=== PATIENT | male | born 1970 | race Caucasian/White ===

== ENCOUNTER 2024-12-22 13:27 | Outpatient (OUT) | payer BC, SELFPAY ==
--- OUTSIDE RECORDS SUMMARY | 2024-12-22 13:30 | XMS_ITS | Encounter Summary ---
Author Organization [facility] Address [address] [place] [address] Care Team Providers Care Stringing Machine Operator Name Role Phone Anne Fernandez MD Unavailable [phone] Lavelle Menezes MD Primary Care Provider [phone] Encounter Details Date Type Department Care Team ([facility] st Contact Info) Description 12/09/2023 Orders Only [facility] [address] [facility] [address] [place] [address] Braulio Solis MD [address] [address] Social History Tobacco Use Types Packs/Day Years Used Date Smoking Tobacco: Every Day Cigarettes Smokeless Tobacco: Never PHQ-2 Answer Date Recorded Patient Health Questionnaire-2 Score 2 09/02/2023 Sex and Gender Information Value Date Recorded Sex Assigned at Not on file Legal Sex Male 8:01 PM EDT Gender Identity Not on file Sexual Orientation Not on file documented as of this encounter Plan of Treatment Not on file documented as of this encounter Procedures Procedure Name Priority Date/Time Associated Diagnosis Comments [place]INE DR[place] S[place] Routine 12/04/2023 9:23 AM EDT documented in this encounter Results * URINE DRUG SCREEN [place]/CONFIRM [place] (12/04/2023 9:23 AM EDT) Braulio Solis MD LAB BLOOD ORDERABLES Final Resul t documented in this encounter Visit Diagnoses Not on filedocumented in this encounter Care Teams Stringing Machine Operator Relationship Specialty Start Date End Date Anne Fernandez MD [address] [place] [address] PCP - External PCP Family Medicine 10/18/22 Lavelle Menezes MD [address] [place] [address] PCP - General Family Medicine 09/02/23 documented as of this encounter
--- OUTSIDE RECORDS SUMMARY | 2024-12-22 13:30 | XMS_ITS | Clinical Summary ---
Author Organization [facility] Address [address] [place] [address] Care Team Providers Care Day Worker Name Role Phone Anne Fernandez MD Unavailable [phone] Lavelle Menezes MD Primary Care Provider Allergies No known active allergies Medications omeprazole (PriLOSEC) [address] capsule 1 capsule 1 (one) time each day at the same time Active predniSONE (Deltasone) 10 MG tabletIndications: Primary osteoarthritis of right hip 6 PO daily x 3 days, 4 PO daily x 3 days, 2 PO daily x 3 days, 1 PO daily x 3 days 39 tablet 5 Active celecoxib (CeleBREX) 200 MG capsuleIndications :DDD (degenerative disc disease), lumbar Take 1 capsule (200 mg) by mouth in the morning and 1 capsule (200 mg) before bedtime. 60 capsule 2 5 Active celecoxib (CeleBREX) 200 MG capsuleIndications :DDD (degenerative disc disease), lumbar TAKE 1 CAPSULE BY MOUTH TWICE A DAY NEEDED 60 capsule 2 4 11/30/19 25 Discontin ued(Reord er) Active Problems Problem Noted Date Diagnosed Date Arthralgia 11/29/2024 Assessment & Plan (11/29/2024 10:03 AM EDT): Check labs DDD (degenerative disc disease), lumbar 09/02/19 24 Assessment & Plan (09/02/2023 10:03 AM EDT): Occasional stiffness and start celebrex. Increase activity and walk regularly. Dyslipidemia 09/02/2023 Gastroesophageal reflux disease without esophagi tis 09/02/2023 Primary osteoarthritis of right hip 09/02/2023 Assessment & Plan (11/29/2024 10:04 AM EDT): Continued pain and hard to function. Check labs for possible auto-immune disease. Treat with prednisone and use celebrex PRN. Refer to pain management for possible injections. Opioid abuse, in remission 09/02/2023 Tobacco user 09/02/2023 Annual physical exam 09/02/2023 Assessment & Plan (09/02/2023 10:03 AM EDT): Due for labs. Discussed proper diet and regular aerobic exercise. Need aerobic exercise 5-6 days a week for 30 minutes at a time. Smaller portions and limit total calories. Never had colon cancer screening and refer for colonoscopy. Tetanus every 10 years. Advised not to smoke. Discussed daily Aspirin therapy. Encounters Date Type Department Care Team Description 11/29/2024 9:15 AM EDT Office Visit [facility] [address] [place] [address] Lavelle Menezes MD Primary osteoarthritis of right hip (Primary Dx); Arthralgia, unspecified joint; DDD (degenerative disc disease), lumbar; Opioid abuse, in remission ([facility]) 11/29/2024 Bamboo flowsheet [facility] [address] [place] [address] Lavelle Menezes MD from Last 3 Months Social History Tobacco Use Types Packs/Day Years Used Date Smoking Tobacco: Every Day Cigarettes Smokeless Tobacco: Never Tobacco Cessation:Ready to Q uit: Not Asked; Counseling Given: Not Answered PHQ-2 Answer Date Recorded Patient Health Questionnaire-2 Score 2 09/02/2023 Sex and Gender Information Value Date Recorded Sex Assigned at Not on file Legal Sex Male 8:01 PM EDT Gender Identity Not on file Sexual Orientation Not on file Last Filed Vital Signs Vital Sign Reading Time Taken Comments Blood Pressure 124/66 11/29/2024 9:20 AM EDT Pulse 79 11/29/2024 9:20 AM EDT Temperature 36.3 C (97.3 F) 11/29/2024 9:20 AM EDT Respiratory Rate 20 11/29/2024 9:20 AM EDT Oxygen Saturation 98% 11/29/2024 9:20 AM EDT Inhaled Oxygen Concentration - - Weight 85.3 kg (188 lb) 11/29/2024 9:20 AM EDT Height 177.8 cm (5' 10 ) 11/29/2024 9:20 AM EDT Body Mass Index 26.98 11/29/2024 9:20 AM EDT Plan of Treatment Health Maintenance Due Date Last Done Comments CT Colonography 1972 Colonoscopy 1972 Colorectal Cancer Screening 1972 FIT-DNA 1972 FIT 1972 FOBT 1972 Sigmoidoscopy 1972 Influenza Vaccine (#1) 2025 02/08/2019 Insurance BS Care Teams Day Worker Relationship Specialty Start Date End Date Anne Fernandez MD [address] [place] [address] PCP - External PCP Family Medicine 10/18/22 Lavelle Menezes MD [address] [place] [address] PCP - General Family Medicine 09/02/23
--- OUTSIDE RECORDS SUMMARY | 2024-12-22 13:30 | XMS_ITS | Clinical Summary ---
Author Organization [facility] Address [address] [place] [address] Care Team Providers Care Cloth Cutter Name Role Phone Unavailable Primary Care Provider Unavailabl e Social History Tobacco Use Types Packs/Day Years Used Date Smoking Tobacco: Never Assessed [place] Safety & Environment Answer Date Rec orded Fear of Current or Ex-Partner Not on file Emotionally Abused Not on file 07/02/2023 Physically Abused Not on file 07/02/2023 Sexually Abused Not on file 07/02/2023 Physically or Sexually Abused Not on file Sex and Gender Information Value Date Recorded Sex Assigned at Not on file Legal Sex Male 12:35 AM EDT Gender Identity Not on file Sexual Orientation Not on file Plan of Treatment Not on file
--- OUTSIDE RECORDS SUMMARY | 2024-12-22 13:30 | XMS_ITS | Clinical Summary ---
Author Organization [facility] Address [address] [place] [address] Care Team Providers Care Carbider Name Role Phone Juan Otto MD Primary Care Provider [phone] Social History Tobacco Use Types Packs/Day Years Used Date Smoking Tobacco: Never Assessed Sex and Gender Information Value Date Recorded Sex Assigned at Not on file Legal Sex Male 7:35 AM EST Gender Identity Not on file Sexual Orientation Not on file Plan of Treatment Health Maintenance Due Date Last Done Comments Anxiety Screening 1990 Depression Screening 1990 HIV Screening 1990 Hepatitis C Screening 1990 DTaP,Tdap,Td Vaccine (1 - Tdap) 10/22/1991 Hepatitis B Vaccine (1 of 3 - 19+ 3-dose series) 10/21 Lipid Screening 10/22/2007 CT Colonography 2017 Cologuard (FIT-DNA) 2017 Colonoscopy 2017 Colorectal Cancer Screening 2017 Diabetes Screening 2017 Fecal Occult Blood 2017 Sigmoidoscopy 2017 Pneumococcal Vaccine: 50+ (1 of 1 - PCV) 2022 Shingrix Vaccine (1 of 2) 2022 Influenza Vaccine (#1) 2025 Care Teams Carbider Relationship Specialty Start Date End Date Juan Otto MD PCP - General 06/30/05
--- OUTSIDE RECORDS SUMMARY | 2024-12-22 13:30 | XMS_ITS | Patient Health Record ---
Author Organization [facility] [place] Address [address] [place] [address] Care Team Providers Care Haunted History Tour Guide Name Role Phone Rebecca Anne Primary Care Provider [phone] Reason For Referral No Information Medications Medication SIG (Take, Route, Frequency, Duration) Notes Start Date End Date Status PriLOSEC Active lipitor Active Social History Tobacco Use: Social History Observation Description Date Details (start date - stop date) Current Smoker NA - NA Tobacco Use/Smoking Question Answer Notes Patient is a current smoker How often do you smoke cigarettes? every day Problems Problem Type SNOMED Code ICD Code Onset Dates Problem Status W/U Status Risk Notes Problem [id number] Herniated lumbar intervertebral disc (M51.26) Active confirmed Plan Of Treatment No Information Insurance Providers Payer Name Payer Address Payer Phone Subscriber Number Group Number Insured Name Patient Relationship to Insured Coverage Start Date Coverage End Date [facility] [address] [place] [address] [id number] Ramo Molina Self - patient is the insured 8 Medical (General) History Medical History History ICD Code ARTHRITIS Surgical History Surgery Date(Month/Year)
--- NOTE | 2024-12-22 13:33 | PM.CN ---
Consult Note: HPI Data of Consult Patient: new to practice Consult date: 12/22/24 Requesting Physician: Carina Wick NP Primary Care Provider: Lavelle Menezes MD Consult Narrative Reason for consult: right hip pain Narrative: Ramo Molina a pleasant 54 year old male presents for evaluation of chronic right hip and low back pain, notes chronic low back pain > 5 years and right hip pain >1 year increasing over the last 3 months. Pt reports pain today 5/10 increasing to 10/10 with numbness tingling to right thigh, pain increased with standing, walking, pushing, pulling, walking around on concrete, stairs, bending. pt notes improvement with position changes and light activity. no imaging available for review. has not attempted PT/HEP. utilizing celebrex and THC with minimal relief. cc:: CC: Carina Wick NP Review of Systems ROS Musculoskeletal Reports: back pain and joint pain [facility] Medical History (Updated 12/22/24 @ 14:06 by Carina Wick NP) Chronic right hip pain ?M25.551 - Pain in right hip (ICD-10) ?G89.29 - Other chronic pain (ICD-10) Exam Constitutional Documenting provider has reviewed patient's vital signs: yes Common normals: no apparent distress, oriented x3, healthy appearing, alert and well nourished General appearance: cooperative HENMT Common normals: normocephalic, hearing grossly normal bilaterally and moist oral mucous membranes Head and scalp: normocephalic Eye Common normals: PERRL Pupil: PERRL Neck & C-Spine Common normals: full ROM General: normal visual inspection Chest Common normals: inspection of chest normal Respiratory Common normals: normal respiratory effort, no retractions and no use of accessory muscles Back & Pelvis Lumbar spine/lower back: pain with ROM, lumbar spinal tenderness Lumbar spinal tenderness location: L4 and L5 and straight leg raise positive right Sacroiliac joints: SI joint(s) abnormal Other: right sij positive chrystal(patricks), gaenslens, thigh thrust, compression test moderate pain of right hip with external rotation, none with internal rotation. strength 4/5 in RLE and 5/5 in LLE Neuro Common normals: oriented x3 Sensorium/orientation: alert Psych Common normals: mental status grossly normal, thought process normal, cooperative, affect normal, speech normal and activity/motor behavior normal Speech: normal speech Thought process: normal thought process Results Additional Findings Additional findings: If on a controlled substance or opioids, I have checked an [place] report on this patient and there are no aberrancies noted in the prescribing history.??If on a controlled substance or opioid a drug screen was completed and reviewed within the last year, and if there has not been a drug screen completed we ordered one today to monitor higher risk, state monitored pain medication use. As part of providing excellent, safe, comprehensive care, the following was completed at our patient's visit: 1. A medication reconciliation and review to ensure accurate knowledge of current/active medications, including asking our patients to inform us about any [id number] medications or herbal remedies/nutritional supplements/alternative remedies. 2. A review to specifically ensure our patients have had annual screening for screening for depression, screening for tobacco use, and screening for unhealthy alcohol use. For concerning screenings had a discussion with the patient, provided patient education, and recommended follow-up with primary care provider when appropriate. If patient noted with a risk of falling, they received education on strength, gait, and balance training to prevent future risk of falling. Portions of this note may have been carried over from the previous visit and updated as appropriate. Please note this office utilizes paper charting in addition to the electronic medical record. A list of current medications, vitals, and PMH is available there as the clinical staff outside of myself do not have access to [employer] charting during the clinic day operations. As part of providing quality comprehensive care the current medications, vitals, and PMH were reviewed in the paper chart. Assessment and Plan Assessment and Plan (1) Sacroiliitis: (2) Chronic right hip pain: (3) Lumbar stenosis with neurogenic claudication: Plan 54 year old male presents for evaluation of right hip pain, as discussed based on physical exam his right SIJ is most problematic. he likely has underlying lumbar stenosis with NC. no imaging of lumbar spine or right hip available for review, we have requested twice. continue celebrex 200mg daily as ordered by PCP, start baclofen 10mg TID PRN pain/spasms. start PT for right hip pain, sacroilitis, and lumbar stenosis with NC. may consider additional xray imaging if a lumbar xray and right hip xray were not completed within the last 12 months, as discussed with pt. f/u in office once PT complete
== END 2024-12-22 13:28 | disposition home or self-care (01) ==
LOC: PM 13:28
PROVIDERS: PCP Family Medicine; Visit Provider Nurse Practitioner
DX: M46.1 Sacroiliitis, not elsewhere classified (principal); M25.551 Pain in right hip; M48.062 Spinal stenosis, lumbar region with neurogenic claudication
CPT/HCPCS: G0463